=== PATIENT | female | born 1980 | race Caucasian/White ===

== ENCOUNTER 2018-06-20 08:33 | Emergency (ER) | payer OTHER ==
[2018-06-20 08:52] VITALS: BP 121/85
--- NOTE | 2018-06-20 09:40 | UC ---
General HPI - HPI Summary HPI Summary: Patient in her third trimester - c/o right ear pain for the past 2 days. Has ongoing sinus issues and seasonal allergies. NO fever. No URI symptoms. Has been taking tylenol. Thought it was her tooth but has not dental pain. Is in her third trimester so limited as to what she can take. Meds: reviewed - History of Current Complaint Chief Complaint: UCEar Stated Complaint: RIGHT EAR ACHE Time Seen by Provider: 06/20/18 09:30 Hx Last Menstrual Period: 07/27/15 Pain Intensity: 8 - Allergy/Home Medications Allergies/Adverse Reactions: Allergies Allergy/AdvReac Type Severity Reaction Status Date / Time seasonal Allergy Itching Uncoded 06/20/18 08:52 Home Medications: Home Medications Acetaminophen [APAP] 650 mg PO ONCE PRN 06/20/18 [History Confirmed 06/20/18] PMH/Surg Hx/FS Hx/Imm Hx Previously Healthy: Yes - Surgical History Surgical History: Yes Surgery Procedure, Year, and Place: wisdom teeth removal. EPIDURAL- BOTH DELIVERIES - Family History Known Family History: Positive: None - Social History Alcohol Use: None Substance Use Type: None Smoking Status (MU): Never Smoked Tobacco Have You Smoked in the Last Year: No - Immunization History Most Recent Influenza Vaccination: 11/2014 Review of Systems All Other Systems Reviewed And Are Negative: Yes ENT: Positive: Ear Ache Physical Exam Triage Information Reviewed: Yes Appearance: Well-Appearing Vital Signs: Initial Vital Signs Temp 97.6 F 06/20/18 08:48 Pulse 95 06/20/18 08:48 Resp 18 06/20/18 08:48 BP 121/85 06/20/18 08:48 Pulse Ox 97 06/20/18 08:48 Vital Signs Reviewed: Yes ENT: Positive: Pharynx normal, Nasal congestion, Other - right ear: clear fluid mild TM bulging. No erythema or opacity. Ext canal: normal Dental Exam: Normal Neck: Positive: Supple, Nontender Respiratory: Positive: Lungs clear, Normal breath sounds Cardiovascular: Positive: RRR, No Murmur Course/Dx - Course Course Of Treatment: This is a 37 yr old with right ear pain Plan Recommend switching from Claritin to Zyrtec for allergies and ear pain Recommend starting flonase as prescribed Both are safe in If symptoms persist or worsen recommend follow up with your primary care provider COntinue tylenol as needed for pain - Diagnoses Provider Diagnosis: Right serous otitis media Discharge - Sign-Out/Discharge Documenting (check all that apply): Patient Departure All imaging exams completed and their final reports reviewed: No Studies - Discharge Plan Condition: Good Disposition: HOME Prescriptions: Cetirizine* [ZyrTEC 10 MG TAB*] 10 mg PO DAILY #30 tab Fluticasone NASAL SPRAY 50MCG* [Flonase NASAL SPRAY 50MCG*] 2 spray BOTH NARES DAILY #1 btl Patient Education Materials: Serous Otitis Media (ED) Referrals: Eran Freedman MD [Primary Care Provider] - Additional Instructions: Recommend switching from Claritin to Zyrtec for allergies and ear pain Recommend starting flonase as prescribed Both are safe in If symptoms persist or worsen recommend follow up with your primary care provider COntinue tylenol as needed for pain - Billing Disposition and Condition Condition: GOOD Disposition: Home
== END 2018-06-20 09:49 | disposition home or self-care (01) ==
LOC: UCCORT 08:33
DX: O99.89 Other specified diseases and conditions complicating pregnancy, childbirth and the puerperium (principal); H65.91 Unspecified nonsuppurative otitis media, right ear; J30.2 Other seasonal allergic rhinitis; Z3A.00 Weeks of gestation of pregnancy not specified
CPT/HCPCS: 99212; G0463

== ENCOUNTER 2018-08-01 20:10 | Inpatient (IN) | payer OTHER ==
[2018-08-01 20:48] LABS: ABS Basophils 0.1 10^3/ul (0-0.2); ABS Eosinophils 0.4 10^3/ul (0-0.6); ABS Lymphocytes 1.5 10^3/ul (1.0-4.8); ABS Monocytes 0.6 10^3/ul (0-0.8); ABS Neutrophils 6.8 10^3/ul (1.5-7.7); Eosinophil % 4.7 %; Hematocrit 32 % (35-47); Hemoglobin 10.9 g/dL (12.0-16.0); Lymphocyte % 16.1 %; Mean Corpuscular HGB Conc 34 g/dL (31-36); Mean Corpuscular Hemoglobin 30 pg (27-31); Mean Corpuscular Volume 88 fL (80-97); Mean Platelet Volume 6.9 fL (7.4-10.4); Platelet Count 279 10^3/uL (150-450); Red Blood Count 3.69 10^6 /uL (3.70-4.87); Red Cell Distribution Width 14 % (10-15); White Blood Count 9.4 10^3/uL (3.5-10.8)
[2018-08-01 20:54] LABS: Urine Appearance Clear; Urine Bilirubin Negative (Negative); Urine Blood Negative (Negative); Urine Color Straw; Urine Glucose Negative (Negative); Urine Ketones Negative (Negative); Urine Nitrite Negative (Negative); Urine Protein Negative (Negative); Urine Specific Gravity 1.008 (1.010-1.030); Urine Urobilinogen Negative (Negative)
[2018-08-01 21:04] LABS: Albumin 3.2 g/dL (3.2-5.2); BUN/Creatinine Ratio 14.3 (8-20); Calcium 9.3 mg/dL (8.6-10.3); EGFR African American 145.8 (>60); EGFR Non-African American 120.5 (>60); Globulin 3.1 g/dL (2-4); Potassium 3.8 mmol/L (3.5-5.0); Total Bilirubin 0.6 mg/dL (0.2-1.0); Total Protein 6.3 g/dL (6.4-8.9); Uric Acid 3.9 mg/dL (2.3-6.6)
[2018-08-02] MEDS ORDERED: Misoprostol TAB* 100 MCG PO ONE (01:50)
[2018-08-02] MEDS ORDERED: Lactated Ringers 1000 ML Bag* 1,000 ML IV ONE ×2 (01:50→07:18)
[2018-08-02] MEDS ORDERED: Buffered Lidocaine 1% SYRIN* 1 ML/SYRINGE INTRADERM ONE (01:50)
[2018-08-02] MEDS ORDERED: Misoprostol TAB* 100 MCG ONE (01:56)
--- NOTE | 2018-08-02 01:57 | HP ---
General Information - Reason for Visit Pt presents with c/o at home BPs 160/100. Pt denies ROGERS, SOB, vision changes or epigastric pain. Pt denies ctx. Pt c/o new onset of facial swelling - General Information Maternal Age: 37 Grav: 3 Para: 2 SAB: 0 IEA: 0 Estimated Due Date: 08/13/18 Determined By: LMP Gestational Age in Weeks/Days: 38w 3d Maternal Blood Type and Rh: A Negative - Results this Serology/RPR Result: Non-Reactive Rubella Result: Immune HBsAg Result: Negative HIV Result: Negative GBS Culture Result: Negative Past Medical History Delivery History: Hx Uncomplicated Vaginal Delivery Pertinent Past Medical History: See Records - hypothyroid, marhinal previa (resolved), AMA Pertinent Past Surgical History: None Pertinent Family History: See Records - DM, hypothyroidism, HTN, stroke, CVD, uterine CA, lung CA - Antepartal Records Antepartal Records: Reviewed, Complicated by: - AMA, hypothyroidism, marginal previa (resolved) Review of Systems Constitutional: Comfortable CV Complaint: No Respiratory: Shortness of Breath: No Gastrointestinal: No Nausea/Vomiting, Normal Bowel Movement Genitourinary: No Dysuria, No Bleeding, No Leaking Fluid Musculoskeletal: No Complaint, No Epigastric Pain Neurological: No Headache, No Visual Changes Movement: Normal Exam Allergies/Adverse Reactions: Allergies seasonal Allergy (Uncoded 07/28/18 14:44) Itching T:97.9, P:98, R:18, BP: 135/90, 147/98, O2:94% Lab Values - Entire Visit: Laboratory Tests 08/01/18 08/01/18 08/01/18 20:30 20:30 20:30 WBC 9.4 RBC 3.69 L Hgb 10.9 L Hct 32 L MCV 88 MCH 30 MCHC 34 RDW 14 Plt Count 279 MPV 6.9 L Neut % (Auto) 71.8 Lymph % (Auto) 16.1 Green % (Auto) 6.8 Eos % (Auto) 4.7 Baso % (Auto) 0.6 Absolute Neuts (auto) 6.8 Absolute Lymphs (auto) 1.5 Absolute Monos (auto) 0.6 Absolute Eos (auto) 0.4 Absolute Basos (auto) 0.1 Absolute Nucleated RBC 0.0 Nucleated RBC % 0.0 Sodium 136 Potassium 3.8 Chloride 107 Carbon Dioxide 21 L Anion Gap 8 BUN 8 Creatinine 0.56 Est GFR ( Amer) 145.8 Est GFR (Non-Af Amer) 120.5 BUN/Creatinine Ratio 14.3 Glucose 112 H Uric Acid 3.9 Calcium 9.3 Total Bilirubin 0.60 AST 15 ALT 9 Alkaline Phosphatase 125 H Total Protein 6.3 L Albumin 3.2 Globulin 3.1 Albumin/Globulin Ratio 1.0 Urine Color Straw Urine Appearance Clear Urine pH 7.0 Ur Specific [place] 1.008 L Urine Protein Negative Urine Ketones Negative Urine Blood Negative Urine Nitrate Negative Urine Bilirubin Negative Urine Urobilinogen Negative Ur Leukocyte Esterase Negative Urine Glucose Negative Blood Type Antibody Screen Antibody Identification Direct Antiglob Test 08/01/18 20:30 WBC RBC Hgb Hct MCV MCH MCHC RDW Plt Count MPV Neut % (Auto) Lymph % (Auto) Green % (Auto) Eos % (Auto) Baso % (Auto) Absolute Neuts (auto) Absolute Lymphs (auto) Absolute Monos (auto) Absolute Eos (auto) Absolute Basos (auto) Absolute Nucleated RBC Nucleated RBC % Sodium Potassium Chloride Carbon Dioxide Anion Gap BUN Creatinine Est GFR ( Amer) Est GFR (Non-Af Amer) BUN/Creatinine Ratio Glucose Uric Acid Calcium Total Bilirubin AST ALT Alkaline Phosphatase Total Protein Albumin Globulin Albumin/Globulin Ratio Urine Color Urine Appearance Urine pH Ur Specific [place] Urine Protein Urine Ketones Urine Blood Urine Nitrate Urine Bilirubin Urine Urobilinogen Ur Leukocyte Esterase Urine Glucose Blood Type A Negative Antibody Screen Positive Antibody Identification Anti-D Direct Antiglob Test Negative - Measurements Height: 5 ft 5 in Weight: 225 lb Weight in lbs: [phone] Body Mass Index (BMI): 37.4 Pre- Weight: 164 lb 0.01 oz Weight Gained This : 60.99 lbs and 0.15 ozs - Exam Breast: Breast Exam Deferred CVA: No CVA Tenderness Extremities: Edema Heart: Normal Rhythm/Heart Sounds HEENT: No Significant Findings Lungs: Clear Bilaterally Rectal: Rectal Exam Deferred Reflexes: DTR 2+ Thyroid: No Thyromegaly - Abdominal Exam Abdomen Exam: Fundal Height Consistent with Dates - Ultrasound/Biophysical Profile Ultrasound Status: Not Done Targeted Exam Findings Estimated Weight: 7 lbs Cervical Exam: 4cm Effacement: 70% Station: -2 Presenting Part: Vertex Membrane Status: Intact Bleeding/Discharge: Bloody Show EFM Findings - External Monitor Findings Baseline Heart Rate: 135 External Monitor Findings: Accelerations Present, No Pattern of Variable or Late Decelerations, Variability Moderate, Baseline Stable Contractions: None Assessment/Plan - Assessment 37 y.o. , Gest HTN, 38w3d EGA - Obstetrical Risk Factors Obstetrical Risk Factors: Gestational Hypertension - Plan Plan: Induction - Date/Time of Admission Date of Admission: 07/23/18 Time of Admission: 02:00
[2018-08-02] MEDS ORDERED: Lactated Ringers 1000 ML Bag* 1,000 ML IV SCH ×3 (02:00→16:00)
[2018-08-02] MEDS ORDERED: OBEPIDURAL* 250 ML EPIDURAL ONE (05:48)
--- NOTE | 2018-08-02 05:48 | PN ---
Progress Note - Progress Note Date of Service: 08/02/18 SOAP: Subjective: Pt reports increasing ctx that are getting more painful. Pt denies ROGERS, vision changes or epigastric pain. Pt requests epidural. Objective: BP:129/89, P:102, cervix: 5.5/70/-2, FHR: 130bpm, + accels, -decels, moderate variability Assessment: 37 y.o. , G HTN, 38w 3d EGA, early labor Plan: 1) Position changes for descent 2) Anesthesia consult 3) Consider AROM
[2018-08-02] MEDS ORDERED: Bupivacaine 0.25% SDV PF* 10 ML VIAL INJ ONE (06:56)
[2018-08-02] MEDS ORDERED: EPHEDrine (Pressors)* 50 MG/ML VIAL IV PUSH PRN (07:18)
[2018-08-02] MEDS ORDERED: Famotidine TAB* 20 MG PO PRN (07:18)
[2018-08-02] MEDS ORDERED: Sodium Citrate/Citric Acid* 15 ML UDC PO PRN (07:18)
[2018-08-02] MEDS ORDERED: Phenylephrine 40 MCG/ML SYRINGE IV PUSH PRN (07:18)
[2018-08-02] MEDS ORDERED: OBEPIDURAL* 250 ML EPIDURAL SCH (08:00)
[2018-08-02] MEDS ORDERED: Oxytocin in LR* 20 UNITS/1,000 ML BAG IVPB ONE (09:12)
--- NOTE | 2018-08-02 12:54 | PN ---
Progress Note - Progress Note Date of Service: 08/02/18 SOAP: Subjective: Pt reports pain is well controlled. Pt reports occasional pressure. Pt. c/o headache. Objective: BP:102/63, P:77, Cervix: 8/80/-2 Assessment: , 38w3d EGA, G HTN, active labor, inadequate ctx Plan: 1) Position changes 2) reevaluate in 1 hr
[2018-08-02] MEDS ORDERED: Acetaminophen TAB* 325 MG PO PRN ×2 (12:55→15:38)
[2018-08-02] MEDS ORDERED: Glycerin ADULT SUPP PR PRN (15:38)
[2018-08-02] MEDS ORDERED: Dibucaine 1% 28.35 GM TUBE PR PRN (15:38)
[2018-08-02] MEDS ORDERED: Witch Hazel PAD* JAR TOPICAL PRN (15:38)
--- NOTE | 2018-08-02 15:40 | PROCNOTE ---
[facility] OB: Delivery Note - Delivery A Date of : 08/02/18 Time of : 15:24 Sex: Male Score 1 Minute: 9 Score 5 Minutes: 9 Gestational Age in Weeks and Days at Delivery: 38 Weeks and 3 Days Delivery Method: Spontaneous Vaginal Labor: Induced Amniotic Fluid: Clear Estimated Blood Loss: 250 Anesthesia/Analgesia: CEI for Labor Delivered By: Lisset Watts - Nursery Level of Nursery: Regular/Bedside - Perineum Perineal Injury: Perineal Laceration, 1st Degree Perineal Repair: By Delivering Practioner - Events Delivery Events of Note Comment: compound arm presentation
[2018-08-02] MEDS ORDERED: Oxytocin in LR* 20 UNITS/1,000 ML BAG IVPB SCH (16:00)
[2018-08-02] MEDS ORDERED: Simethicone TAB* 80 MG TAB.CHEW PO SCH (17:30)
[2018-08-02] MEDS ORDERED: Lidocaine 1% INJ* 10 MG/ML 30 ML SDV ONE (17:35)
[2018-08-02] MEDS: Docusate CAP* 100 MG PO SCH (20:46)
[2018-08-02] MEDS: Ibuprofen TAB* 600 MG PO PRN (20:46)
[2018-08-03] MEDS ORDERED: Levothyroxine TAB* 50 MCG TAB PO SCH (06:00)
[2018-08-03] MEDS: Docusate CAP* 100 MG PO SCH ×2 (08:00→14:12)
[2018-08-03] MEDS: Ibuprofen TAB* 600 MG PO PRN ×2 (08:00→14:12)
[2018-08-03 08:12] LABS: ABS Eosinophils 0.3 10^3/ul (0-0.6); ABS Lymphocytes 1.7 10^3/ul (1.0-4.8); ABS Monocytes 0.6 10^3/ul (0-0.8); ABS Neutrophils 8.3 10^3/ul (1.5-7.7); Eosinophil % 2.6 %; Hematocrit 30 % (35-47); Lymphocyte % 15.4 %; Mean Corpuscular HGB Conc 34 g/dL (31-36); Mean Corpuscular Hemoglobin 29 pg (27-31); Mean Corpuscular Volume 88 fL (80-97); Nucleated Red Blood Cells % 0.1; Platelet Count 237 10^3/uL (150-450); Red Blood Count 3.38 10^6 /uL (3.70-4.87); Red Cell Distribution Width 14 % (10-15)
[2018-08-03] MEDS ORDERED: RHO D Immune Globulin (HUMAN)* 300 MCG = 1,500 I.U. INJ IM ONE (08:49)
[2018-08-03] MEDS ORDERED: Ferrous Gluconate TAB* 324 MG TAB PO SCH (09:00)
[2018-08-03 16:25] VITALS: BP 129/82
== END 2018-08-03 18:01 | disposition home or self-care (01) | DRG 560 ==
LOC: MCHOBOUT 20:10 → MCHOB 08-02 01:56
PROVIDERS: ADMIT Midwife; ATTEND Midwife
PROC: 10E0XZZ Delivery of Products of Conception, External Approach (ICD-10-PCS; principal; 2018-08-02)
PROC: 10907ZC Drainage of Amniotic Fluid, Therapeutic from Products of Conception, Via Natural or Artificial Opening (ICD-10-PCS; 2018-08-02)
PROC: 4A1HXCZ Monitoring of Products of Conception, Cardiac Rate, External Approach (ICD-10-PCS; 2018-08-02)
PROC: 0HQ9XZZ Repair Perineum Skin, External Approach (ICD-10-PCS; 2018-08-02)
DX: O13.4 Gestational [pregnancy-induced] hypertension without significant proteinuria, complicating childbirth (principal); Z37.0 Single live birth; O99.284 Endocrine, nutritional and metabolic diseases complicating childbirth; E03.9 Hypothyroidism, unspecified; Z3A.38 38 weeks gestation of pregnancy; K21.9 Gastro-esophageal reflux disease without esophagitis; O99.62 Diseases of the digestive system complicating childbirth; O32.6XX0 Maternal care for compound presentation, not applicable or unspecified; O70.0 First degree perineal laceration during delivery
CPT/HCPCS: 36415; 80053; 81003; 84550; 85025; 85461; 86850; 86870; 86880; 86900; 86901; A9270-GY; J2790; J3490; S0191

== ENCOUNTER → 2018-11-21 10:06 | Day surgery (SDC) | payer OTHER ==
[~2018-11-21 10:06] MED LIST: Acetaminophen IV 1GM/100ML * 1,000 MG/100 ML VIAL IVPB ONE; Acetaminophen IV 1GM/100ML * 100 ML ONE; Buffered Lidocaine 1% SYRIN* 1 ML/SYRINGE INTRADERM ONE; Bupivacaine 0.25% W/EPI* 10 ML SDV ONE; Dexamethasone IV* 4 MG/ML 1 ML (4 MG) ONE; DiMENhydriNATE IV* 50 MG/ML VIAL IV PUSH PRN; DiMENhydriNATE IV* 50 MG/ML VIAL ONE; Famotidine IV* 10 MG/ML 2 ML (20 mg) IV ONE; Famotidine IV* 10 MG/ML 2 ML (20 mg) ONE; HYDROmorphone INJ1* 1 MG/ML SYRINGE IV PRN; HYDROmorphone INJ1* 1 MG/ML SYRINGE ONE; Ketorolac INJ* 30 MG/ML 1 ML VIAL ONE; Lactated Ringers 1000 ML Bag* 1,000 ML IV SCH; Lidocaine 2% PF * 5 ML VIAL ONE; Midazolam* 1 MG/ML 5 ML VIAL (5 MG) ONE; Naloxone* 0.4 MG/ML 1 ML VIAL IV PRN; Ondansetron INJ* 2 MG/ML VIAL ONE; Propofol* 10 MG/ML 20 ML BTL ONE; Succinylcholine* 20 MG/ML 10 ML VIAL ONE; fentaNYL* 50 MCG/ML 2 ML VIAL (100 MCG VIAL) ONE; oxyCODONE/Acetamin 5/325 MG* TAB ONE
[2018-11-21 15:35] VITALS: BP 145/74
--- NOTE | 2018-12-03 00:31 | OP ---
DATE OF OPERATION: 11/21/18 - [facility] DATE OF : 76 SURGEON: Juan Daniel Avelar MD RETURN TO SERVICE INSPECTOR: None. ANESTHESIA: General anesthetic with endotracheal intubation. PRE-OP DIAGNOSIS: Multiparity, patient desires permanent surgical sterilization. POST-OP DIAGNOSIS: Multiparity, patient desires permanent surgical sterilization. OPERATIVE PROCEDURE: Laparoscopic tubal ligation with Filshie clips. ESTIMATED BLOOD LOSS: None. SPECIMEN: There were no specimens sent to pathology. IV FLUIDS: The patient received 1 L of IV crystalloid fluid. URINE OUTPUT: 300 cc of clear urine. FINDINGS: Laparoscopically revealed normal uterus, adnexa, bowel, and bladder. There were no complications during this procedure. DESCRIPTION OF PROCEDURE: The patient was taken to the operating room where she was identified. She was placed on the operating table where a general anesthetic with endotracheal intubation was obtained without difficulty. She was then placed in the dorsal lithotomy position, prepped and draped in normal sterile fashion. Attention was then brought on to the patient's vagina, where the bladder was catheterized with a Arriaza catheter and drained of clear urine. A speculum was inserted into the patient's vagina. The cervix was identified, grasped with a single-tooth tenaculum, and through the cervix, a ClearView uterine manipulator was introduced. The balloon in the manipulator was insufflated with 3 cc of sterile water. The single-tooth tenaculum was removed as well as the speculum and the manipulator was left inside. Attention was then brought out into patient's abdomen, where an infraumbilical skin incision was made with a knife and carried through to the underlying layer of fascia. The fascia was then grasped with Brock clamps, brought up to the incision and incised medially with a knife. Entry into the peritoneum was confirmed using Lashonda clamp. Once there was entry into the peritoneum, the Brock clamps in the fascia were replaced with 0 Polysorb suture. Through this incision, a 5 mm blunt trocar was introduced. The balloon in the trocar was insufflated with air. The patient's abdomen was then insufflated with CO2 gas. A 5 mm scope was introduced through the trocar and the patient was then placed in the Trendelenburg position and a survey of the patient's pelvic anatomy revealed findings as noted above. A second trocar was introduced 4 cm above the symphysis pubis under direct visualization, and through this trocar, a Filshie clip applicator was introduced. The fallopian tubes were grasped bilaterally at the midsection, where a Filshie clip was then applied, covering the entire circumference of the fallopian tube bilaterally and good blanching was noted. At this time, the suprapubic trocar was removed as well as the trocar from the umbilicus. Air from the patient's abdomen was also allowed to be released spontaneously. At the umbilical incision, the fascia was closed with 0 Polysorb suture in a running fashion. The umbilical skin incision was closed with 4-0 Monocryl subcuticular stitch and the suprapubic incision was also closed with 4- 0 Monocryl subcuticular stitch. The uterine manipulator was removed from the patient's uterus. The Arriaza catheter was also removed. The patient tolerated the procedure well. Sponge, lap, and needle counts were correct x2. She was then transferred to the recovery room in stable condition. [id number]/[facility] #: [id number] BARBARA
== END | disposition home or self-care (01) ==
LOC: OR 10:06
PROVIDERS: ATTEND Obstetrics & Gynecology
DX: Z30.2 Encounter for sterilization (principal); E03.9 Hypothyroidism, unspecified; F31.9 Bipolar disorder, unspecified; F41.8 Other specified anxiety disorders; K21.9 Gastro-esophageal reflux disease without esophagitis; J45.909 Unspecified asthma, uncomplicated
CPT/HCPCS: 36415; 84702; A9270-GY; C1776; J0330; J1100; J1170; J1240; J1885; J2250; J2405; J2704; J3010

== ENCOUNTER 2018-12-19 09:42 | Emergency (ER) | payer OTHER ==
[2018-12-19 10:18] VITALS: BP 146/83
--- NOTE | 2018-12-19 10:27 | UC ---
Dental HPI - HPI Summary HPI Summary: 37 year old female with no PMH, h/o infected tooth after filling fell out months ago, needs to have root canal but unable to afford it, presents with 3 days of swelling, irritated, pain radiating up to ear on the right side. occurred once before, was placed on ABX. Dentist away until Monday, has appt to see him then. no fever, chills, no other pains. tubal - History of Current Complaint Chief Complaint: UCDentalProblem Stated Complaint: ORAL PAIN Time Seen by Provider: 12/19/18 10:26 Hx Obtained From: Patient Hx Last Menstrual Period: unknown ?: No Onset/Duration: Sudden Onset, Lasting Days - 3 Severity: Moderate Pain Intensity: 6 Pain Scale Used: 0-10 Numeric Aggravating Factor(s): Nothing - Allergies/Home Medications Allergies/Adverse Reactions: Allergies Allergy/AdvReac Type Severity Reaction Status Date / Time No Known Drug Allergies Allergy See Comment Verified 12/19/18 10:12 Home Medications: Home Medications Phenylephrine/Dm/Acetaminop/GG [Mucinex Fast-Max Cold-Flu Cplt] 2 tab PO ONCE PRN 12/19/18 [History Confirmed 12/19/18] PMH/Surg Hx/FS Hx/Imm Hx Previously Healthy: Yes - Surgical History Surgical History: Yes Surgery Procedure, Year, and Place: wisdom teeth removal. EPIDURAL- BOTH DELIVERIES. tubal ligation - Family History Known Family History: Positive: None, Non-Contributory - Social History Occupation: Employed Full-time Alcohol Use: None Substance Use Type: None Smoking Status (MU): Never Smoked Tobacco Have You Smoked in the Last Year: No - Immunization History Most Recent Influenza Vaccination: unknown Most Recent Pneumonia Vaccination: n/a Review of Systems All Other Systems Reviewed And Are Negative: Yes Constitutional: Positive: Negative. Negative: Fever, Chills, Fatigue ENT: Positive: Dental Pain. Negative: Sore Throat, Ear Ache, Nasal Discharge, Sinus Congestion, Sinus Pain/Tenderness Gastrointestinal: Positive: Negative Genitourinary: Positive: Negative Is Patient Immunocompromised?: No Physical Exam Triage Information Reviewed: Yes Appearance: Well-Appearing, No Pain Distress, Well-Nourished Vital Signs: Initial Vital Signs Temp 98.5 F 12/19/18 10:13 Pulse 76 11/13/19 10:13 Resp 15 12/19/18 10:13 BP 146/83 12/19/18 10:13 Pulse Ox 100 12/19/18 10:13 Vital Signs Reviewed: Yes Eyes: Positive: Conjunctiva Clear ENT: Positive: Pharynx normal, Uvula midline. Negative: Pharyngeal erythema, Tonsillar swelling, Tonsillar exudate, Sinus tenderness Dental: Positive: Gross Decay/Caries @ - right lower molar, filling cracked, TTP over gingiva, mild erythema. Neck: Positive: Supple, No Lymphadenopathy, Tenderness @ - nate-sergio right sided. Negative: Nuchal Rigidity, Enlarged Nodes @ Neurological Exam: Normal Psychological Exam: Normal Skin Exam: Normal Dental Complaint Course/Dx - Course Course Of Treatment: INfection in priro filling area/ dental caries. no abscess seen - Amoxicillin twice daily x 10 days. - REturn with increased pain, fever, chills, difficulty swallowing. - MOtrin/ Alleve as needed for pain - Continue appointment with dentist on Monday. - Differential Dx/Diagnosis Differential Diagnosis/Dx: Peridontic Disease, Peritonsillar Abcess, TMJ Syndrome, Tonsillitis Provider Diagnosis: Infected dental caries Discharge ED - Sign-Out/Discharge Documenting (check all that apply): Patient Departure All imaging exams completed and their final reports reviewed: No Studies - Discharge Plan Condition: Good Disposition: HOME Prescriptions: Amoxicillin PO (*) [Amoxicillin 875 MG (*)] 875 mg PO BID #20 tab Patient Education Materials: Amoxicillin (By mouth) Referrals: Eran Freedman MD [Primary Care Provider] - Additional Instructions: - Amoxicillin twice daily x 10 days. - REturn with increased pain, fever, chills, difficulty swallowing. - MOtrin/ Alleve as needed for pain - Continue appointment with dentist on Monday. - Billing Disposition and Condition Condition: GOOD Disposition: Home
== END 2018-12-19 10:44 | disposition home or self-care (01) ==
LOC: UCCORT 09:42
DX: K02.9 Dental caries, unspecified (principal); K08.89 Other specified disorders of teeth and supporting structures
CPT/HCPCS: 99212; G0463

== ENCOUNTER 2019-02-13 10:41 | Emergency (ER) | payer MEDICAID, OTHER ==
[2019-02-13 11:00] VITALS: BP 149/99
--- NOTE | 2019-02-13 11:20 | UC ---
[facility] Dental HPI - HPI Summary HPI Summary: dental pain x 2 days pain is moderated, 7 out of 10 worse with chewing and cold , better with Tylenol no fever, no chills, no dental swelling - History of Current Complaint Chief Complaint: UCDentalProblem Stated Complaint: DENTAL COMPLAINT Time Seen by Provider: 02/13/19 10:53 Hx Obtained From: Patient Hx Last Menstrual Period: 01/17/19 ?: No Onset/Duration: Gradual Onset, Lasting Days - 2, Still Present Severity: Moderate Pain Intensity: 7 Aggravating Factor(s): Cold, Chewing Alleviating Factor(s): OTC Meds Dental: 1 - pain - Allergies/Home Medications Allergies/Adverse Reactions: Allergies Allergy/AdvReac Type Severity Reaction Status Date / Time No Known Drug Allergies Allergy See Comment Verified 02/13/19 10:55 Home Medications: Home Medications Acetaminophen [Tylenol] 2 tab PO ONCE 02/13/19 [History Confirmed 02/13/19] Ibuprofen TAB* [Advil TAB*] 4 tab PO ONCE 02/13/19 [History Confirmed 02/13/19] PMH/Surg Hx/FS Hx/Imm Hx Previously Healthy: Yes Endocrine History: Hypothyroidism Respiratory History: Asthma - Surgical History Surgical History: Yes Surgery Procedure, Year, and Place: wisdom teeth removal. tubal ligation - Family History Known Family History: Positive: None, Non-Contributory - Social History Alcohol Use: None Substance Use Type: None Smoking Status (MU): Never Smoked Tobacco Have You Smoked in the Last Year: No - Immunization History Most Recent Influenza Vaccination: unknown Most Recent Pneumonia Vaccination: n/a Review of Systems All Other Systems Reviewed And Are Negative: Yes Is Patient Immunocompromised?: No Physical Exam Triage Information Reviewed: Yes Appearance: Well-Appearing, No Pain Distress, Well-Nourished Vital Signs: Initial Vital Signs Temp 97.8 F 02/13/19 10:56 Pulse 90 02/13/19 10:56 Resp 15 02/13/19 10:56 BP 149/99 02/13/19 10:56 Pulse Ox 98 02/13/19 10:56 Vital Signs Reviewed: Yes Eye Exam: Normal Eyes: Positive: Conjunctiva Clear ENT: Positive: Normal ENT inspection, Hearing grossly normal, Pharynx normal Dental: Positive: Percussion Tenderness @ - 30, Gross Decay/Caries @ - 30. Negative: Dental Fracture @, Abscess @, Cellulitis @ Neck exam: Normal Neck: Positive: Supple Respiratory: Positive: Chest non-tender, Lungs clear, Normal breath sounds Cardiovascular: Positive: RRR, No Murmur, Pulses Normal Dental Complaint Course/Dx - Differential Dx/Diagnosis Provider Diagnosis: Pain, dental Discharge ED - Sign-Out/Discharge Documenting (check all that apply): Patient Departure All imaging exams completed and their final reports reviewed: No Studies - Discharge Plan Condition: Stable Disposition: HOME Prescriptions: Clindamycin Cap(NF) [Clindamycin Cap 300 mg Cap(NF)] 300 mg PO TID #30 cap Patient Education Materials: Toothache (ED) Referrals: Eran Freedman MD [Primary Care Provider] - 7 Days - Billing Disposition and Condition Condition: STABLE Disposition: Home
== END 2019-02-13 11:21 | disposition home or self-care (01) ==
LOC: UCCORT 10:41
DX: K08.89 Other specified disorders of teeth and supporting structures (principal); J45.909 Unspecified asthma, uncomplicated
CPT/HCPCS: 99212; G0463